=== PATIENT | male | born 1970 ===

== ENCOUNTER 2018-06-17 10:11 | Emergency (ER) | payer OTHER ==
[~2018-06-17] VITALS: Ht 160 cm; Wt 83.9 kg
[2018-06-22] MEDS ORDERED: KETO10 PO (20:25)
[2018-06-22] MEDS ORDERED: Amoxicillin500 MG PO (20:25)
== END 2018-06-17 11:45 | disposition home or self-care (01) ==
LOC: ER 10:11
DX: I10 Essential (primary) hypertension (principal)
CPT/HCPCS: 93005; 93010; 99283-25